=== PATIENT | male | born 1945 | race Caucasian/White ===

== ENCOUNTER 2023-04-29 08:48 | Outpatient (CLI) | payer MEDICARE, OTHER, SELFPAY ==
--- NOTE | ~2023-04-29 | NM_ITS ---
EXAMINATION: NM bone scan whole body DATE: 04/29/2023 13:40 INDICATION: Malignant neoplasm of the prostate TECHNIQUE: 34.2 mCi Tc-99m HDP was administered intravenously. Delayed whole-body scintigrams were o btained. COMPARISON: There are no relevant imaging studies at our institution. FINDINGS: Likely degenerative joint centered uptake at the bilateral elbows, medial compartment of the right kn ee and at the left midfoot. 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 No other suspicious foci of abnormal bone uptake to suggest osteoblastic metastatic disease. IMPRESSION: 1. No lesion suspicious for metastatic disease. Reviewed, dictated and finalized at location A.
== END 2023-04-29 08:49 | disposition home or self-care (01) ==
PROVIDERS: Visit Provider Urology
DX: C61 Malignant neoplasm of prostate (principal)
CPT/HCPCS: 78306; A9503